=== PATIENT | female | born 1955 | race Caucasian/White ===

== ENCOUNTER → 2021-06-19 13:11 | Outpatient (CLI) | payer MEDICARE, BC, SELFPAY ==
--- NOTE | 2021-06-19 | DI.US.S_ITS ---
ULTRASOUND OF LEFT BREAST: 06/19/2021 CLINICAL: Patient returns for a 6 month follow up of the left breast. Comparison is made to exams dated: 06/19/2021 mammogram - [facility], 09/26/2020 ultrasound, 09/26/2020 mammogram, and 08/22/2020 mammogram - [facility]. Color flow and real-time ultrasound of the left breast were performed. Yañez scale images of the real-time examination were reviewed. No significant abnormalities were seen sonographically in the left breast. IMPRESSION: PROBABLY BENIGN There is no abnormality seen in the left breast to correspond with the mammography finding in the lower aspect which likely represents dense fibroglandular tissue. THis is probably benign. A follow-up mammogram with possible ultrasound in 6 months is recommended to demonstrate continued stability. Findings and recommendations were conveyed to the patient during today's evaluation. This exam was interpreted at Station ID: [id number]. Electronically Signed By: Alban Jackson M.D. aty/:06/19/2021 16:04:27 letter sent: Followup Recommended Ultrasound BI-RADS: 3 Probably benign
--- NOTE | 2021-06-19 | DI.MG.S_ITS ---
BILATERAL DIGITAL DIAGNOSTIC MAMMOGRAM 3D/2D: 06/19/2021 CLINICAL: BILATERAL SHORT FOLLOW UP. Comparison is made to exams dated: 09/26/2020 mammogram and 08/22/2020 mammogram - [facility]. The tissue of both breasts is heterogeneously dense. This may lower the sensitivity of mammography. There is a 1.4 cm oval mass with an obscured and circumscribed margin in the right breast at 12 o'clock posterior depth. This is less prominent and decreased in size and was not seen on the prior ultrasound. There is a 1.5 cm oval mass with an obscured and circumscribed margin in the left breast at 7 o'clock middle depth. This is less prominent and decreased in size and was not seen on the prior ultrasound. No other significant masses or calcifications are seen in either breast. IMPRESSION: INCOMPLETE: NEEDS ADDITIONAL IMAGING EVALUATION The 1.4 cm oval mass in the right breast at 12 o'clock posterior depth resembles fibroglandular tissue and is indeterminate. The 1.5 cm oval mass in the left breast at 7 o'clock middle depth resembles fibroglandular tissue and is indeterminate. An ultrasound is recommended for further evaluation and is scheduled to immediately follow this examination. This exam was interpreted at Station ID: [id number]. NOTE: For mammograms, a report in lay terms will be sent to the patient. Approximately 15% of breast malignancies will not be visualized mammographically. In the management of a palpable breast mass, a negative mammogram must not discourage biopsy of a clinically suspicious lesion. Electronically Signed By: Alban Jackson M.D. aty/:06/19/2021 15:06:25 ACR BI-RADS Category 0: Incomplete 3340F
--- NOTE | 2021-06-19 | DI.US.S_ITS ---
ULTRASOUND OF RIGHT BREAST: 06/19/2021 CLINICAL: Patient returns for a 6 month follow up of the right breast. Comparison is made to exams dated: 06/19/2021 mammogram - [facility], 09/26/2020 ultrasound, 09/26/2020 mammogram, and 08/22/2020 mammogram - [facility]. Color flow and real-time ultrasound of the right breast were performed. Yañez scale images of the real-time examination were reviewed. There is an incidental 0.4 cm x 0.3 cm x 0.4 cm oval cyst in the right breast at 11 o'clock middle depth 4 cm from the nipple. This oval cyst is hypoechoic with internal echoes and posterior acoustic enhancement. This correlates as an incidental finding. Color flow imaging demonstrates that there is no vascularity present. There are dense areas of fibroglandular tissue in the superior aspect of the right breast correlating with dense fibroglandular tissue seen on mammographic evaluation. IMPRESSION: PROBABLY BENIGN The 0.4 cm x 0.3 cm x 0.4 cm oval cyst in the right breast 11 o'clock position, 4cm from the nipple most likely is a complicated cyst and is probably benign. There is no abnormality seen in the right breast to correspond with the mammography finding in the upper aspect which likely represents normal fibroglandular tissue. A follow-up mammogram and an ultrasound in 6 months is recommended to demonstrate stability. Findings and recommendations were conveyed to the patient during today's evaluation. This exam was interpreted at Station ID: [id number]. Electronically Signed By: Alban Jackson M.D. at/:06/19/2021 15:44:54 letter sent: Followup Recommended Ultrasound BI-RADS: 3 Probably benign
== END ==
PROVIDERS: PCP Family Medicine; Referring Provider Family Medicine; Visit Provider Family Medicine
DX: R92.8 Other abnormal and inconclusive findings on diagnostic imaging of breast (principal); N60.01 Solitary cyst of right breast; N63.24 Unspecified lump in the left breast, lower inner quadrant
CPT/HCPCS: 76642; 77066; G0279

== ENCOUNTER → 2022-02-04 12:33 | Outpatient (CLI) | payer MEDICARE, BC, SELFPAY ==
--- NOTE | 2022-02-04 | DI.MG.S_ITS ---
BILATERAL DIGITAL DIAGNOSTIC MAMMOGRAM 3D/2D: 02/04/2022 CLINICAL: Short term follow up for bilateral breasts. Comparison is made to exams dated: 06/19/2021 mammogram - [facility], 09/26/2020 mammogram, 08/22/2020 mammogram - [facility], 06/19/2021 ultrasound, and 06/19/2021 ultrasound - [facility]. The tissue of both breasts is heterogeneously dense. This may lower the sensitivity of mammography. The 1.4 cm oval mass previously seen, in the right breast at 12 o'clock posterior depth is less prominent, further decreased in size and was not seen on the prior ultrasound. The 1.5 cm oval mass in the left breast at 7 o'clock anterior depth is also less prominent and was not seen on the prior ultrasound. No other significant masses or calcifications are seen in either breast. Mammograms are otherwise stable. IMPRESSION: INCOMPLETE: NEEDS ADDITIONAL IMAGING EVALUATION The 1.4 cm oval mass in the right breast at 12 o'clock posterior depth most likely is fibroglandular tissue and less prominent. The 1.5 cm oval mass in the left breast at 7 o'clock anterior depth resembles fibroglandular tissue and is less prominent. Ultrasound is recommended for full evaluation of these areas. This was performed immediately following this exam. This exam was interpreted at Station ID: [id number]. NOTE: For mammograms, a report in lay terms will be sent to the patient. Approximately 15% of breast malignancies will not be visualized mammographically. In the management of a palpable breast mass, a negative mammogram must not discourage biopsy of a clinically suspicious lesion. Electronically Signed By: Cherrie reed/:02/04/2022 14:48:41 ACR BI-RADS Category 0: Incomplete 3340F
--- NOTE | 2022-02-04 | DI.US.S_ITS ---
LIMITED ULTRASOUND OF LEFT BREAST: 02/04/2022 CLINICAL: Patient returns today for a 6 month follow up to evaluate an asymmetry in the left breast. Comparison is made to exams dated: 06/19/2021 ultrasound, 06/19/2021 ultrasound, and 02/04/2022 mammogram - [facility]. Real-time ultrasound of the left breast 5-7 o'clock region was performed. Yañez scale images of the real-time examination were reviewed. No significant abnormalities were seen sonographically in the left breast. Specifically, no finding to correspond to the patient's resolved screening mammographic abnormality. IMPRESSION: NEGATIVE There is no sonographic evidence of malignancy. Return to annual mammogram screening schedule is recommended. Findings and recommendations were conveyed to the patient at time of exam. This exam was interpreted at Station ID: [id number]. Electronically Signed By: Cherrie reed/:02/04/2022 14:49:22 letter sent: Normal Exam Ultrasound BI-RADS: 1 Negative
--- NOTE | 2022-02-04 | DI.US.S_ITS ---
LIMITED ULTRASOUND OF RIGHT BREAST: 02/04/2022 CLINICAL: Patient returns today for a 6 month follow up to evaluate an asymmetry in the right breast. Comparison is made to exams dated: 02/04/2022 mammogram, 06/19/2021 ultrasound, and 06/19/2021 ultrasound - [facility]. Real-time ultrasound of the right breast 9-12 o'clock region was performed. Yañez scale images of the real-time examination were reviewed. No significant abnormalities were seen sonographically in the right breast. Specifically, no finding to correspond to the patient's resolved screening mammographic abnormality. Additionally, a previously seen 0.4 cm complicated cyst in the 11:00 position has resolved. IMPRESSION: NEGATIVE There is no sonographic evidence of malignancy. Return to annual mammogram screening schedule is recommended. Findings and recommendations were conveyed to the patient at time of exam. This exam was interpreted at Station ID: [id number]. Electronically Signed By: Cherrie reed/:02/04/2022 14:50:06 Entry: - 02/05/2022 11:17:52 Ultrasound BI-RADS: 1 Negative
== END ==
PROVIDERS: PCP Family Medicine; Referring Provider Family Medicine; Visit Provider Family Medicine
DX: R92.8 Other abnormal and inconclusive findings on diagnostic imaging of breast (principal)
CPT/HCPCS: 76642; 77066; G0279

== ENCOUNTER 2022-02-20 09:02 | Day surgery (SDC) | payer MEDICARE, BC, SELFPAY | END 2022-02-20 09:25 | disposition home or self-care (01) | LOC: ENDO 09:04 | PROVIDERS: PCP Internal Medicine; Referring Provider Student in an Organized Health Care Education/Training Program; Visit Provider Student in an Organized Health Care Education/Training Program ==

== ENCOUNTER → 2022-08-16 11:50 | Outpatient (CLI) | payer MEDICARE, BC, SELFPAY ==
[2022-08-16 12:54] LABS: COVID19 -Nasal RAPID Negative (Negative)
== END ==
PROVIDERS: PCP Internal Medicine; Visit Provider Surgery
DX: Z01.812 Encounter for preprocedural laboratory examination (principal); Z20.822 Contact with and (suspected) exposure to COVID-19
CPT/HCPCS: 87635; C9803

== ENCOUNTER 2022-08-19 11:28 | Day surgery (SDC) | payer MEDICARE, BC, SELFPAY ==
--- NOTE | 2022-08-19 | PATH_ITS ---
[facility] Accession Number: [id number] . 01 Material submitted: . colon - TRANSVERSE COLON POLYP . 01 Diagnosis: Transverse Colon, Polyp, Biopsy: Tubular adenoma. MRV 08/21/2022 1328 Local . 01 Electronically signed: . Savita Bautista MD, Pathologist NPI- [id number] . 01 Gross description: . TRANSVERSE COLON POLYP: Received in formalin are 3 fragment(s) of mcdonnell, soft tissue measuring 0.1 x 0.1 x 0.1 cm to 0.3 x 0.2 x 0.1 cm submitted entirely in 1 cassette(s) /IGOR 08/20/2022 2323 Local . 01 Pathologist provided ICD-10: D12.3 . 01 CPT . 186260 Specimen Comment: A courtesy copy of this report has been sent to [phone] Performed at: 01 [facility] [address] [place] [address], [place], [place] [id number] MD Jayden Calle MD Phone: [phone]
[2022-08-19] MEDS: LACTATED RINGERS 1,000 ML 84 ML IV (12:23)
[2022-08-19 12:33] VITALS: BP 149/85; PULSE 73; RESP 18; TEMP 36.9; O2SAT 97; BMI 26.4
--- NOTE | 2022-08-19 13:03 | PM.HP.1 ---
History of Present Illness History of Present Illness Date Patient Seen: 08/19/22 Time Patient Seen: 13:03 Chief complaint: SDC Narrative: Family history of colon cancer and a personal history of colon polyps. Patient History Family & Social History Social History: household members spouse Tobacco & Substance use: Smoking Status Never smoker alcohol intake current alcohol intake frequency 0-2 drinks per day Substance Use Type does not use Meds Home Medications and Allergies Home Medications Medication Instructions Recorded Confirmed Type escitalopram oxalate 5 mg tablet 5 mg PO DAILY 08/19/22 08/19/22 History estradiol 0.05 mg/24 hr weekly 1 patch transdermal QWEEK 08/19/22 08/19/22 History transdermal patch famciclovir 500 mg tablet 500 mg PO PRN PRN Cold Sores 08/19/22 08/19/22 History famotidine 20 mg tablet 20 mg PO DAILY 08/19/22 08/19/22 History levothyroxine 50 mcg tablet 50 mcg PO DAILY 08/19/22 08/19/22 History losartan 25 mg tablet 25 mg PO DAILY 08/19/22 08/19/22 History metronidazole 0.75 % topical cream 0.75 applic topical DAILY 08/19/22 08/19/22 History progesterone micronized 100 mg 100 mg PO DAILY 08/19/22 08/19/22 History capsule zolpidem 5 mg tablet 5 mg PO PRN PRN Anxiety 08/19/22 08/19/22 History Allergies Allergy/AdvReac Type Severity Reaction Status Date / Time codeine Allergy Intermediate Headache Verified 08/19/22 12:44 erythromycin base Allergy Intermediate Rash Verified 08/19/22 12:44 Penicillins Allergy Intermediate Rash Verified 08/19/22 12:44 Review of Systems Review of Systems ROS: Yes All systems reviewed with the patient and are negative except as otherwise documented Exam Vital Signs (past 8 hours): - 08/19/22 12:33 Temperature 98.5 F Pulse Rate 73 Respiratory Rate 18 Blood Pressure 149/85 H Pulse Oximetry 97 Oxygen Delivery Method Room Air Oxygen Delivery Method Room Air Const General: cooperative HENMT Head: normal to inspection Eyes General: appearance normal, both eyes and all related structures Neck Neck: normal visual inspection Chest Chest: normal inspection of the chest Resp Effort & Inspection: normal respiratory effort Cardio Rate: regular rate GI Inspection: normal to inspection Skin General: no rashes or lesions noted Neuro General: patient alert and patient awake Extrem General: normal to inspection and no pedal edema Psych Appearance: grossly normal Assessment & Plan Assessment & Plan narrative: 66-year-old female with a personal history of colon polyps and a family history of colon cancer in her mom in her 40s. Colonoscopy is planned for today. Time Spent With Patient Critical Care time: I spent a total of [] minutes of critical care time on this patient's care today; this time is exclusive of procedural time.
--- NOTE | 2022-08-19 13:06 | PM.PREOP ---
Pre-operative Note COVID-19 COVID-19 status: Negative Result date/Date tested (Pos, Neg/Pending): 08/16/22 Criteria for continued procedure: Possibility delay results in more complex future surgery or treatment Interval Note History & Physical reviewed/Exam performed by Physician: Yes Changes to H&P: No ASA Class (for procedural sedation): II
[2022-08-19 14:09] VITALS: BP 122/66; PULSE 58; RESP 14; TEMP 36.3; O2SAT 99
--- NOTE | 2022-08-19 14:09 | PM.OP.COLON ---
Operative Date/Time/Diagnoses Date of procedure: 08/19/22 Time of procedure: 14:09 Pre-op diagnosis: Family history of colon cancer and a personal history of colon polyps. Post-op diagnosis: same Procedure & Clinicians Study performed: Colonoscopy with cold snare and cold forceps polypectomy Same procedure as scheduled: Yes Indications: Family history of colon cancer personal history of colon polyps. Surgeon: Nnamdi Alcazar Procedure Notes SCOAP/Timeout: Done Procedure in detail: After the risks and benefits were explained, written and verbal informed consent was obtained. The patient was brought into the procedure room and placed into the left lateral decubitus position. Please see nurse dentistry professor notes for sedation details. Digital rectal examination was accomplished. The scope was introduced into the patient and advanced under direct visualization to the cecum as identified by the appendiceal orifice and ileocecal valve. The scope was slowly withdrawn to carefully examine the mucosa for any defects or lesions. Comprehensive imaging was accomplished throughout the rectum including the dentate line. The colon was decompressed, the scope was then removed from the patient who tolerated the procedure well Adult colonoscope Bowel prep adequate Scope withdrawal time: 10 minutes Sedation minutes: 25 Complications: none Impression: There was a small 5 mm polyp in the transverse colon initially attempted for resection with cold snare. There was a small amount of residual polyp that was not captured with the snare so this was addressed with cold forceps. No significant additional colon mucosal pathology was appreciated. Grade 3 internal hemorrhoids were noted. Endoscopic diagnosis 1. Colon polyp 2. Grade 3 hemorrhoids Post-procedure Plan for aftercare: 1. Await histopathology 2. Considering family history, repeat colonoscopy 5 years. Disposition: PACU
[2022-08-19 14:15] VITALS: BP 105/64; PULSE 65; RESP 18; O2SAT 100
[2022-08-19 14:20] VITALS: BP 138/75; PULSE 60; RESP 14; TEMP 36.5; O2SAT 100
[2022-08-19 14:21] VITALS: BP 144/77; PULSE 57; RESP 12; TEMP 36.5; O2SAT 98
== END 2022-08-19 14:39 | disposition home or self-care (01) ==
PROVIDERS: PCP Internal Medicine; Referring Provider Internal Medicine Gastroenterology; Visit Provider Internal Medicine Gastroenterology
PROC: 0DJD8ZZ Inspection of Lower Intestinal Tract, Via Natural or Artificial Opening Endoscopic (ICD-10-PCS; CPT 45378; principal; 2022-08-19 13:00)
DX: Z12.11 Encounter for screening for malignant neoplasm of colon (principal); Z86.010 Personal history of colon polyps; Z80.0 Family history of malignant neoplasm of digestive organs; K64.2 Third degree hemorrhoids; D12.3 Benign neoplasm of transverse colon
CPT/HCPCS: 45385; 45380; J2704

== ENCOUNTER → 2023-04-07 09:45 | Outpatient (CLI) | payer MEDICARE, BC, SELFPAY ==
--- NOTE | 2023-04-07 | DI.MG.S_ITS ---
BILATERAL DIGITAL SCREENING MAMMOGRAM 3D/2D WITH CAD: 04/07/2023 CLINICAL: Routine screening. Comparison is made to exams dated: 02/04/2022 mammogram, 06/19/2021 mammogram - [facility], and 09/26/2020 mammogram - [facility]. Both breasts are heterogeneously dense, which may obscure small masses (category c / 51-75% glandular tissue). Current study was also evaluated with a Computer Aided Detection (CAD) system. No significant masses, calcifications, or other findings are seen in either breast. There has been no significant interval change. IMPRESSION: NEGATIVE There is no mammographic evidence of malignancy. A 1 year screening mammogram is recommended. Based on the Tyrer Cuzick model (a risk assessment model) the patient's lifetime risk is 9.9% and her 10 year risk is 5.2%. According to the ACR, ACS, and NCCN guidelines, an annual breast MRI exam along with mammogram is recommended if the patient's lifetime risk is 20% or greater. This exam was interpreted at Station ID: [id number]. NOTE: For mammograms, a report in lay terms will be sent to the patient. Approximately 15% of breast malignancies will not be visualized mammographically. In the management of a palpable breast mass, a negative mammogram must not discourage biopsy of a clinically suspicious lesion. Electronically Signed By: Shukri melendez/zach:04/07/2023 12:44:41 letter sent: Normal Exam ACR BI-RADS Category 1: Negative [id number]
== END ==
PROVIDERS: PCP Internal Medicine; Referring Provider Internal Medicine; Visit Provider Internal Medicine
DX: Z12.31 Encounter for screening mammogram for malignant neoplasm of breast (principal)
CPT/HCPCS: 77063; 77067

== ENCOUNTER → 2024-04-14 11:11 | Outpatient (CLI) | payer MEDICARE, BC, SELFPAY ==
--- NOTE | 2024-04-14 11:12 | DI.MG.S_ITS ---
BILATERAL DIGITAL SCREENING MAMMOGRAM 3D/2D WITH CAD: 04/14/2024 CLINICAL: Routine screening. Comparison is made to exams dated: 04/07/2023 mammogram, 02/04/2022 mammogram, 06/19/2021 mammogram - [facility], and 08/22/2020 mammogram - [facility]. Both breasts are heterogeneously dense, which may obscure small masses (category c / 51-75% glandular tissue). Current study was also evaluated with a Computer Aided Detection (CAD) system. There are benign post operative findings in the right breast. No significant masses, calcifications, or other findings are seen in either breast. There has been no significant interval change. IMPRESSION: BENIGN There is no mammographic evidence of malignancy. A 1 year screening mammogram is recommended. Based on the Tyrer Cuzick model (a risk assessment model) the patient's lifetime risk is 9.4% and her 10 year risk is 5.2%. According to the ACR, ACS, and NCCN guidelines, an annual breast MRI exam along with mammogram is recommended if the patient's lifetime risk is 20% or greater. This exam was interpreted at Station ID: [id number]. NOTE: For mammograms, a report in lay terms will be sent to the patient. Approximately 15% of breast malignancies will not be visualized mammographically. In the management of a palpable breast mass, a negative mammogram must not discourage biopsy of a clinically suspicious lesion. Electronically Signed By: Darin white/zach:04/14/2024 12:15:24 letter sent: Normal Exam ACR BI-RADS Category 2: Benign Finding(s) 3342F
== END ==
PROVIDERS: PCP Internal Medicine; Referring Provider Internal Medicine; Visit Provider Internal Medicine
DX: Z12.31 Encounter for screening mammogram for malignant neoplasm of breast (principal); R92.333 Mammographic heterogeneous density, bilateral breasts
CPT/HCPCS: 77063; 77067